=== PATIENT | male | born 1950 | race Caucasian/White ===

== ENCOUNTER 2022-11-10 11:33 | Outpatient (CLI) | payer MEDICARE, SELFPAY ==
[2022-11-10 13:51] LABS: Basophils Absolute Auto 0.03 K/uL (0.00-0.30); Basophils Percent Auto 0.6 % (0.0-3.0); Eosinophils Absolute Auto 0.07 K/uL (0.00-0.50); Eosinophils Percent Auto 1.4 % (0.0-7.0); Hematocrit 37.1 % (37.0-53.0); Hemoglobin* 12.1 gm/dL (13.5-17.5); Immature Granulocytes Abs Auto 0.03 K/uL (0.00-0.30); Immature Granulocytes Pct Auto 0.6 %; Lymphocytes Absolute Auto 2.05 K/uL (0.90-2.90); Lymphocytes Percent Auto 39.8 % (20-44); Mean Corpuscular HGB Conc 33 gm/dL (32-36); Mean Corpuscular Hemoglobin 32 pg (26-34); Mean Corpuscular Volume 98 fL (80-100); Monocytes Percent Auto 10.7 % (0.0-11.0); Neutrophils Absolute Auto 2.42 K/uL (1.7-7.0); Neutrophils Percent Auto 46.9 % (42.0-72.0); Platelet Count* 181 K/uL (140-440); Red Blood Count 3.77 m/uL (4.30-5.90); White Blood Count* 5.15 K/uL (4.50-11.00)
[2022-11-10 13:55] LABS: Slide Review Reflex No
[2022-11-10 14:03] LABS: Chloride* 107 mmol/L (96-114)
[2022-11-10 14:04] LABS: Potassium* 5.3 mmol/L (3.6-5.1); Sodium* 140 mmol/L (135-149)
[2022-11-10 14:06] LABS: Creatinine* 1.2 mg/dL (0.5-1.5); Estimated Glomerular Filt Rate 65 ml/min
[2022-11-10 14:07] LABS: Blood Urea Nitrogen* 41 mg/dL (7-30); Calcium* 9.8 mg/dL (8.4-10.6); Carbon Dioxide* 27 mmol/L (20-32); Glucose* 101 mg/dL (60-115)
[2022-11-10 14:08] LABS: HDL Cholesterol* 61 mg/dL (>=40)
[2022-11-10 15:24] LABS: Cholesterol* 243 mg/dL (90-199)
[2022-11-10 15:25] LABS: LDL Cholesterol Calculated 141 mg/dL (<100)
[2022-11-10 15:27] LABS: Triglycerides* 207 mg/dL (40-149)
[2022-11-11 14:45] LABS: Testosterone, Adult Male 148 ng/dL (300-720)
[2022-11-15 10:14] LABS: PSA Screen* 5.35 ng/mL (0.10-4.00)
== END 2022-11-10 11:34 | disposition home or self-care (01) ==
PROVIDERS: PCP Family Medicine; Visit Provider Family Medicine
DX: I10 Essential (primary) hypertension (principal); R53.1 Weakness; Z12.5 Encounter for screening for malignant neoplasm of prostate; Z13.6 Encounter for screening for cardiovascular disorders
CPT/HCPCS: 80048; 80061; 84153; 84403; 85025

== ENCOUNTER 2023-05-18 11:37 | Outpatient (CLI) | payer MEDICARE, SELFPAY | END 2023-05-18 11:38 | disposition home or self-care (01) | PROVIDERS: PCP Family Medicine; Visit Provider Family Medicine | DX: I10 Essential (primary) hypertension (principal); R97.20 Elevated prostate specific antigen [PSA]; E78.5 Hyperlipidemia, unspecified; R79.89 Other specified abnormal findings of blood chemistry | CPT/HCPCS: 80048; 84153 ==

== ENCOUNTER 2023-10-18 11:53 | Outpatient (CLI) | payer MEDICARE, SELFPAY | END 2023-10-18 11:54 | disposition home or self-care (01) | PROVIDERS: PCP Family Medicine; Visit Provider Family Medicine | DX: I10 Essential (primary) hypertension (principal); E78.2 Mixed hyperlipidemia; R97.20 Elevated prostate specific antigen [PSA]; R79.89 Other specified abnormal findings of blood chemistry | CPT/HCPCS: 80048; 80061; 84153; 84460 ==

== ENCOUNTER 2024-10-18 11:18 | Outpatient (CLI) | payer MEDICARE, SELFPAY | END 2024-10-18 11:19 | disposition home or self-care (01) | PROVIDERS: PCP Family Medicine; Visit Provider Family Medicine | DX: E78.2 Mixed hyperlipidemia (principal); I10 Essential (primary) hypertension; R97.20 Elevated prostate specific antigen [PSA]; Z12.5 Encounter for screening for malignant neoplasm of prostate | CPT/HCPCS: 80048; 80061; 84153; 84460 ==

== ENCOUNTER 2025-02-04 10:37 | Emergency (ER) | payer MEDICARE, SELFPAY ==
--- OUTSIDE RECORDS SUMMARY | 2025-02-04 10:39 | XMS_ITS | Clinical Summary ---
Author Organization [facility] Address [address] [place] [address] Care Team Providers Care Science Writer Name Role Phone Unavailable Primary Care Provider Unavailabl e Source Comments Patient records contain information from all sites at [facility]. For routine questions regarding patient records, call [phone] during business hours, M-F 8:00 AM - 5:00 PM Central Time. Record requests for emergency care only can be directed to [phone] at any time.[facility] Allergies No known active allergies Medications buprenorphine-na loxone (SUBOXONE) 8-2 mg per SL tablet Place 1 tablet under the tongue daily. 10/18/2011 Active citalopram (CeleXA) 20 mg tablet Take 1 tablet by mouth daily. 11/01/2018 Active lisinopril-hydro CHLOROthiazide (PRINZIDE,ZESTOR ETIC) 10-12.5 mg per tablet Take 1 tablet by mouth daily. 11/01/2018 Active atorvastatin (LIPITOR) 40 mg tablet Take 1 tablet by mouth daily. 10/05/[address] tablet Take 81 mg by mouth daily. Active LORazepam (ATIVAN) 2 mg tablet Take 1 tablet (2 mg total) by mouth once for 1 dose. Prior to MRI 1 tablet 12/13/2023 Active Active Problems Problem Noted Date Diagnosed Date Major Depressive Disorder Single Episode Unspeci fied 10/25/2011 Posttraumatic Stress Disorder Brief 02/09/2011 Opioid Moderate Or Severe Us e Disorder (Dependence) Uncomplicated 01/01/2011 Panic Disorder With Agoraphobia 09/07/2007 Persistent Depressive Disorder 09/07/2007 Immunizations Immunization Administration Dates Next Due H1N1 All Forms 11/28/2009 H1N1 Inj 11/28/2009 Influenza TIV (IM) 11/28/2009 Tdap 11/28/2009 influenza trivalent vaccine (6 months and older) (PF) 11/28/2009 Social History Tobacco Use Types Packs/Day Years Used Date Smoking Tobacco: Former Cigarettes Q uit: 11/07/2003 Passive Smoke Exposure: Never Smokeless Tobacco: Never [facility] Utilities Answer Date Recorded In the past 12 months has th e electric, gas, oil, or water company threatened to shut off services in your home? Patient declined 12/12/2023 Exercise Vital Sign Answer Date Recorde d On average, how many days pe r week do you engage in moderate to strenuous exercise (like a brisk walk)? 7 days 12/12/2023 On average, how many minutes do you engage in exercise at this level? 90 min 12/12/2023 Hunger Vital Sign Answer Date Recorded Within the past 12 months, y ou worried that your food would run out before you got the money to buy more. Patient declined Within the past 12 months, t he food you bought just didn't last and you didn't have money to get more. Patient declined 03/2024 PRAPARE - Transportation Answer Date Re corded In the past 12 months, has l ack of transportation kept you from medical appointments or from getting medications? No 03/2024 In the past 12 months, has l ack of transportation kept you from meetings, work, or from getting things needed for daily living? No 12/12/2023 Nutrition Answer Date Recorded Nutrition: EVOO Fat Source Unknown 12/12 On average, how many serving s of fruits and vegetables do you eat per day (serving size is equal to 1 cup or approximately the size of a tennis ball)? 0-2 12/12/2023 Dental Answer Date Recorded Dental: Regular Dentist Yes 12/12/19 Employment Answer Date Recorded Employment status Retired 12/12/2023 Housing Stability Answer Date Recorded What is your living situation today? Patient dec lined 12/12/2023 Sex and Gender Information Value Date Recorded Sex Assigned at Male 12/12/2023 1:57 PM LITERARY AGENT Legal Sex Male 1:33 PM LITERARY AGENT Gender Identity Male 12/12/2023 1:57 PM LITERARY AGENT Sexual Orientation Choose not to disclose 2023 1:57 PM LITERARY AGENT Plan of Treatment Health Maintenance Due Date Last Done Comments Abdominal Aortic Aneurysm (AAA) Screen 1952 CT Colonography 1952 Cologuard 1952 Colonoscopy 1952 Colorectal Cancer Screening 1952 Creatinine Level (Kidney Function Test) 1952 Depression Monitoring (PHQ-9) 1952 FIT 1952 Fasting Glucose for Diabetes Screening 1952 Hepatitis C Screening 1952 Potassium Level 1952 Sodium Level 1952 Pneumococcal vaccine (50+ years) (1 of 1 - PCV) 2002 Zoster Vaccines (1 of 2) 2002 DTaP,Tdap,and Td Vaccines (2 - Td or Tdap) 11/28/2019 11/28/2009 COVID-19 Vaccine (4 - 2023-2 5 season) 2024 10/28/2021, 01/31/2021, 01/10/2021 Influenza Vaccine (#1) 2024 0, 11/28/2009 Depression Monitoring (PHQ-9 for quality tracking) 11/07/2024 Fall Risk Screen (Annual) 11/07/2024 IPV Vaccines Aged Out No longer eligi ble based on patient's age to complete this topic Insurance MEDICARE
--- OUTSIDE RECORDS SUMMARY | 2025-02-04 10:39 | XMS_ITS | Clinical Summary ---
Author Organization [facility] Address [address] [place] [id number] Care Team Providers Care Occupational Therapist Per Diem Name Role Phone Dioni Rubin MD Primary Care Provider Unavail able Allergies No known active allergies Medications BUPRENORPHINE-NAL OXONE, 8 MG-2 MG, sublingual tablet 1 Active SUBOXONE film sublingual 0 8 Active buPROPion (WELLBUTRIN SR) 150 mg Sustained-Release tabletIndications :Depression, recurrent Take 1 tablet by mouth 2 times daily. Start with one tab daily in am for 2 weeks then increase to twice daily 60 tablet 6 8 Active lisinopril-hydroc hlorothiazide (10-12.5 mg) tablet (PRINZIDE; ZESTORETIC)Indica tions:Essential hypertension Take 1 tablet by mouth once daily. 90 tablet 1 8 Active citalopram (CELEXA) 20 mg tabletIndications :Agoraphobia with panic disorder,Major depressive disorder, recurrent, moderate (HC) Take 1 tablet by mouth once daily. 90 tablet 3 8 Active Active Problems Problem Noted Date Diagnosed Date MDD (major depressive disorder) 10/25/2011 PTSD (post-traumatic stress disorder) 02/09/2011 Opioid type dependence; in t he Suboxone Program with Dr. Villalpando 01/01/2011 Dysthymic disorder 09/07/2007 Agoraphobia with panic disorder 09/07/2007 Resolved Problems Problem Noted Date Diagnosed Date Resolved Date Opioid type dependence, unspecified 01/20/2010 01/01/2011 Opioid type dependence, continuous 11/26/2009 01/01/2011 Major depressive disorder, r ecurrent episode, moderate 12/19/2008 10/25/2011 Major depressive disorder, r ecurrent episode, severe, without mention of psychotic behavior 09/07/2007 10/25/2011 Immunizations Immunization Administration Dates Next Due Influenza A (H1N1), Inactivated (Age >=3 Years) 11/28/2009 Influenza, IIV3 (Age >=3 years) 11/28/2009 Tdap 11/28/2009 Family History Medical History Relation Name Comments COPD Father Good Health Mother Relation Name Status Comments Father Mother Alive Social History Tobacco Use Types Packs/Day Years Used Date Smoking Tobacco: Former Cigarettes Smokeless Tobacco: Never Tobacco Cessation:Counseling Given: Yes Comments:uses E-cig Alcohol Use Standard Drinks/Week Comments No 0 (1 standard drink = 0.6 oz pur e alcohol) None since mid PHQ-2 Answer Date Recorded PHQ-2 Score 2 01/06/2019 Sex and Gender Information Value Date Recorded Sex Assigned at Not on file Legal Sex Male 5:23 AM CLOTH WIRE WEAVER Gender Identity Not on file Sexual Orientation Not on file 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 Not on file Not on file Obstetrics History Last Filed Vital Signs Vital Sign Reading Time Taken Comments Blood Pressure 138/64 11/01/2018 11:09 AM CLOTH WIRE WEAVER Pulse 96 11/01/2018 11:09 AM CLOTH WIRE WEAVER Temperature 36.1 C (97 F) 11/01/2018 11:09 AM CLOTH WIRE WEAVER Respiratory Rate 16 11/01/2018 11:09 AM CLOTH WIRE WEAVER Oxygen Saturation 98% 11/01/2018 11:09 AM CLOTH WIRE WEAVER Inhaled Oxygen Concentration - - Weight 88 kg (194 lb) 11/01/2018 11:09 AM CLOTH WIRE WEAVER Height 177 cm (5' 9.69) 11/01/2018 11:09 AM CLOTH WIRE WEAVER Body Mass Index 28.09 11/01/2018 11:09 AM CLOTH WIRE WEAVER Plan of Treatment Health Maintenance Due Date Last Done Comments Hepatitis C screening for ag e 18-79 1970 Colonoscopy through age 75 1997 Pneumococcal series for age 50+ (1 of 1 - PCV) 2002 Zoster (shingles) series for age 50+ (1 of 2) 2002 Depression screening for age 12+ 08/29/2019 08/29/2018, 08/07/2018, 01/16/2018, Additional history exists BMI (ht and wt on same day) for age 18+ 11/01/2019 11/01/2018, 08/29/2018, 08/07/2018, Additional history exists Tetanus booster 11/28/2019 11/28/2009 Lipids for age 45-75 11/28/2022 11/28/2017 COVID-19 vaccine series ( - 2023- season) 2024 Influenza Vaccine (#1) 2024 11/28/2009 RSV vaccine for adults or (1 - 1-dose 75+ series) 2027 Tdap Completed 11/28/2009 Procedures Procedure Name Priority Date/Time Associated Diagnosis Comments LIPID PANEL Routine 11/28/2017 1:05 PM CLOTH WIRE WEAVER Lipid screening from Last 3 Months or Most Recently Relevant to Health Maintenance Results * (ABNORMAL) LIPID PANEL (11/28/2017 1:05 PM CLOTH WIRE WEAVER) CHOLESTEROL,TOTAL 243(H) 100 - 199 mg/dL 11/28/2017 1:47 PM CLOTH WIRE WEAVER [facility] TRIGLYCERIDES 382(H) <150 mg/dL 11/28/2017 1:47 PM [facility] HDL CHOLESTEROL 54 >40 mg/dL 8 1:47 PM CLOTH WIRE WEAVER [facility] NON-HDL CHOLESTEROL 189(H) <145 mg/dl 11/28/2017 1:47 PM [facility] CHOL/HDL RATIO 4.50(H) <4.50 11/28/2017 1:47 PM [facility] LDL CHOLESTEROL 113 <=130 mg/dL 11/28/2017 1:47 PM [facility] PROVIDER ORDERED STATUS RANDOM 11/28/2017 1:47 PM [facility] Blood BLOOD SPECIMEN / Unknown Venipuncture / Unknown 11/28/2017 1:05 PM CLOTH WIRE WEAVER 11/28/2017 1:08 PM CLOTH WIRE WEAVER us Dioni A Scottie MD CHEMISTRY Final Result [address] [id number] from Last 3 Months or Most Recently Relevant to Health Maintenance Insurance MEDICARE [place] ONLY Care Teams Occupational Therapist Per Diem Relationship Specialty Start Date End Date Dioni Rubin MD PCP - General 09/01/07
[2025-02-04 10:40] VITALS: BP 157/73; PULSE 100; RESP 18; TEMP 37; O2SAT 97; BMI 27.3
--- NOTE | 2025-02-04 10:47 | CRLHL7_ITS ---
For Patients: As a result of the Century Cures Act, medical imaging exams and procedure reports are released immediately into your electronic medical record. You may view this report before your referring provider. If you have questions, please contact your health care provider. INDICATION: Leg pain and swelling. TECHNIQUE: Ultrasound venous duplex lower left extremity. Compression venous exam was performed using toro-scale, color Doppler, and spectral Doppler analysis. COMPARISON: None. FINDINGS: Deep veins: Sonographic imaging demonstrates the left common femoral, deep femoral, superficial femoral, popliteal, posterior tibial and the contralateral right common femoral veins to be fully compressible with normal color Doppler blood flow. Superficial veins: Proximal greater saphenous vein is fully compressible. IMPRESSION: No deep venous thrombosis. Dictated by Radha Morales MD @ 02/04/2025 11:38:56 AM (Electronically Signed)
--- NOTE | 2025-02-04 12:14 | ED_ITS ---
HPI - General Adult General Date Seen: 02/04/25 Chief complaint: Extremity Pain/Injury, Lower Stated complaint: possible blood clot, sent by clinic Time Seen by Provider: 02/04/25 12:04 Source: patient Mode of arrival: ambulatory Limitations: no limitations History of Present Illness HPI narrative: Patient is a 74-year-old male who presenting to the emergency department for lower extremity swelling. He he knows notable left lower extremity swelling is starting or no 3 days ago that has gradually been improving. He states he has been keeping his legs elevated. He saw as addiction medicine specialist today and was recommended to come to the emergency department to rule out a blood clot. Has not noticed any redness to the area or pain. States he used to walk his dog 3 miles every day but his dog 3 months ago he has been much more sedentary since then. Has never been diagnosed with any heart disease. Denies fevers, chills, chest pain, shortness of breath, weakness, lightheadedness, dizziness. No other concerns noted. No history of blood clots. Related Data Home Medications ?Medication ?Instructions ?Recorded ?Confirmed multivitamin with iron 1 tab PO QDAY 05/11/22 02/04/25 aspirin 81 mg tablet,delayed 81 mg PO QDAY 11/19/22 02/04/25 release (Adult Aspirin Regimen) Previous Rx's ?Medication ?Instructions ?Recorded atorvastatin 40 mg tablet 40 mg PO QDAY #90 tabs 10/19/24 citalopram 20 mg tablet 20 mg PO QDAY #90 tabs 10/19/24 lisinopril 20 1 tab PO QDAY #90 tabs 10/19/24 mg-hydrochlorothiazide 25 mg tablet buprenorphine 8 mg-naloxone 2 mg 1 film sublingual QDAY #28 ea 02/04/25 sublingual film Allergies Allergy/AdvReac Type Severity Reaction Status Date / Time ciprofloxacin AdvReac Mild Rash/GI Verified 02/04/25 10:47 intolerance Review of Systems Status of ROS: Reports: 10 or more systems reviewed and unremarkable except as noted in History and below [facility] Medical History Mixed hyperlipidemia ?E78.2 - Mixed hyperlipidemia (ICD-10) Primary hypertension ?I10 - Essential (primary) hypertension (ICD-10) Elevated PSA ?R97.20 - Elevated prostate specific antigen [PSA] (ICD-10) Major depression, recurrent ?F33.9 - Major depressive disorder, recurrent, unspecified (ICD-10) Low testosterone in male ?R79.89 - Other specified abnormal findings of blood chemistry (ICD-10) Posttraumatic stress disorder ?F43.10 - Post-traumatic stress disorder, unspecified (ICD-10) Opioid dependence ?F11.20 - Opioid dependence, uncomplicated (ICD-10) Generalized anxiety disorder ?F41.1 - Generalized anxiety disorder (ICD-10) Family History Maternal Grandfather Heart disease Social History What is your current living situation?: I presently have a place to live Problems where you live: no known problems In the past 12 months, utilities in danger of being shut off: no In past 12 months, lack of transportation kept you from medical appts, meetings, work, or getting things needed for daily living: no In the past 12 mos, have been you worried that your food would run out before you had money to buy more?: never true In the past 12 mos, the food you bought just didn't last and you didn't have money to buy more?: never true Smoking Status: Former smoker How often does anyone, including family, friends and others, physically hurt you : never How often does anyone, including family, friends and others, insult or talk down to you: never How often does anyone, including family, friends and others, threaten you with harm: never How often does anyone, including family, friends and others, scream or curse at you: never Exam Narrative: Exam Narrative: Const: Well-nourished, Well-developed, in mild distress Eyes: PERRL, no conjunctival injection, and symmetrical lids HENT: Atraumatic external nose and ears. Moist mucous membranes. Neck: Symmetric, trachea midline, No thyromegaly. CVS: RRR, No murmurs or gallops. Peripheral pulses 2+ and equal in all extremities Extremities: +2 lower extremity pitting edema bilaterally prison up the franco. No erythema noted RESP: Unlabored respiratory effort. Clear to auscultation bilaterally. GI: Nontender/Nondistended, No rebound or guarding. MSK:Extremities w/o deformity, Normal Active ROM Skin: Warm, Dry. No rashes or lesions. Neuro: Normal Muscle tone, No focal neurological deficits. Psych: Awake, Alert, & Oriented x3. Appropriate mood and affect. Const: Vital Signs, click to edit/add: Vital Signs - 24 hr 02/04/25 10:40 Temperature 98.6 F Pulse Rate [Pulse Oximeter] 100 Respiratory Rate 18 Blood Pressure [Le ft Upper Arm] 157/73 H Pulse Oximetry 97 Oxygen Delivery Me thod Room Air Course Vital Signs Vital signs: Initial Vital Signs Temperature 98.6 F 02/04/25 10:40 Temperature Source Temporal Artery Scan 02/04/25 10:40 Pulse Rate 100 02/04/25 10:40 Respiratory Rate 18 02/04/25 10:40 Blood Pressure 157/73 H 02/04/25 10:40 Blood Pressure Mean 101 02/04/25 10:40 Pulse Oximetry 97 02/04/25 10:40 Oxygen Delivery Method Room Air 02/04/25 10:40 Vital Signs Temperature 98.6 F 02/04/25 10:40 Pulse Rate 100 02/04/25 10:40 Respiratory Rate 18 02/04/25 10:40 Blood Pressure 157/73 H 02/04/25 10:40 Pulse Oximetry 97 02/04/25 10:40 Oxygen Delivery Method Room Air 02/04/25 10:40 Temperature 98.6 F 02/04/25 10:40 Pulse Rate 100 02/04/25 10:40 Respiratory Rate 18 02/04/25 10:40 Blood Pressure 157/73 H 02/04/25 10:40 Pulse Oximetry 97 02/04/25 10:40 Oxygen Delivery Method Room Air 02/04/25 10:40 Medical Decision Making [facility] Narrative Medical decision making narrative: Patient is a 74-year-old male presenting to emergency department for concern of a blood clot. Ultrasound was ordered in triage by nursing staff and was completed by the time I saw the patient. No signs of a blood clot. I do not see any clear signs of cellulitis at this time. His vital signs are stable and he is doing well overall. I do believe that the increase and lower extremity edema is from his more recent sedentary lifestyle. Recommended ambulating more and keeping the legs elevated. Also recommended close follow-up with primary care provider. He is agreeable to this plan. Will be discharged. Imaging Data Venous US: Radiologist's impression: No deep venous thrombosis. Dictated by Radha Morales MD @ 02/04/2025 11:38:56 AM Discharge Plan Discharge Clinical Impression: Bilateral edema of lower extremity Patient Disposition: Home, Self-Care Condition: Stable Instructions: Leg Edema (ED) Additional Instructions: Try to walk more frequently and keep your legs elevated above your heart when possible. Recommend close follow-up with her primary care provider. I will call them and explained about having this increasing edema and see if they want you to be seen earlier than your appointment 1 month from now. Return for any other new or worsening symptoms. Prescriptions: No Action multivitamin with iron Tablet 1 tab PO QDAY lisinopril-hydrochlorothiazide 20-25 mg tablet 1 tab PO QDAY Qty: 90 3RF citalopram 20 mg tablet 20 mg PO QDAY Qty: 90 3RF atorvastatin 40 mg tablet 40 mg PO QDAY Qty: 90 3RF buprenorphine-naloxone 8-2 mg film 1 film sublingual QDAY Qty: 28 2RF Rx Instructions: OK to fill early i case he goes on vacation - the patient prefers generic if possible aspirin [Adult Aspirin Regimen] 81 mg tablet,delayed release (DR/EC) 81 mg PO QDAY Follow Up/Referrals: Negrito Vale MD [Primary Care Provider] - Stand Alone Forms: Loopt Info Instructions
--- OUTSIDE RECORDS SUMMARY | 2025-02-04 12:24 | XMS_ITS | Clinical Summary ---
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 on file Not on file Obstetrics History Last Filed Vital Signs Vital Sign Reading Time Taken Comments Blood Pressure 138/64 11/01/2018 11:09 AM INSIDE SALES MANAGER Pulse 96 11/01/2018 11:09 AM INSIDE SALES MANAGER Temperature 36.1 C (97 F) 11/01/2018 11:09 AM INSIDE SALES MANAGER Respiratory Rate 16 11/01/2018 11:09 AM INSIDE SALES MANAGER Oxygen Saturation 98% 11/01/2018 11:09 AM INSIDE SALES MANAGER Inhaled Oxygen Concentration - - Weight 88 kg (194 lb) 11/01/2018 11:09 AM INSIDE SALES MANAGER Height 177 cm (5' 9.69) 11/01/2018 11:09 AM INSIDE SALES MANAGER Body Mass Index 28.09 11/01/2018 11:09 AM INSIDE SALES MANAGER Plan of Treatment Health Maintenance Due Date [...] Comments LIPID PANEL Routine 11/28/2017 1:05 PM INSIDE SALES MANAGER Lipid screening from Last 3 Months or Most Recently Relevant to Health Maintenance Results * (ABNORMAL) LIPID PANEL (11/28/2017 1:05 PM INSIDE SALES MANAGER) CHOLESTEROL,TOTAL 243(H) 100 - 199 mg/dL 11/28/2017 1:47 PM INSIDE SALES MANAGER [facility] TRIGLYCERIDES 382(H) <150 mg/dL 11/28/2017 1:47 PM [facility] HDL CHOLESTEROL 54 >40 mg/dL 8 1:47 PM INSIDE SALES MANAGER [facility] NON-HDL CHOLESTEROL 189(H) <145 mg/dl 11/28/2017 1:47 PM [facility] CHOL/HDL RATIO 4.50(H) <4.50 11/28/2017 1:47 PM [facility] LDL CHOLESTEROL 113 <=130 mg/dL 11/28/2017 1:47 PM [facility] PROVIDER ORDERED STATUS RANDOM 11/28/2017 1:47 PM [facility] Blood BLOOD SPECIMEN / Unknown Venipuncture / Unknown 11/28/2017 1:05 PM INSIDE SALES MANAGER 11/28/2017 1:08 PM INSIDE SALES MANAGER us Dioni A Scottie MD CHEMISTRY Final Result [address] [id number] from Last 3 Months or Most Recently Relevant to Health Maintenance Insurance MEDICARE [place] ONLY Care Teams Compliance Review Officer Relationship Specialty Start Date End Date Dioni Rubin MD PCP - General 09/01/07
--- OUTSIDE RECORDS SUMMARY | 2025-02-04 12:24 | XMS_ITS | Clinical Summary ---
Author Organization [facility] Address [address] [place] [address] Care Team Providers Care Senior Business Analyst Name Role Phone Unavailable Primary Care Provider Unavailabl e Source Comments Patient records contain information from all sites at [facility]. For routine questions regarding patient records, call [phone] during business hours, M-F 8:00 AM - 5:00 PM Central Time. Record requests for emergency care only can be directed to [phone] at any time.[facility] Allergies No known active allergies Medications buprenorphine-na [...] Passive Smoke Exposure: Never Smokeless Tobacco: Never [facility] Utilities Answer Date Recorded In the past [...] Sex Assigned at Male 12/12/2023 1:57 PM COLLISION REPAIRER Legal Sex Male 1:33 PM COLLISION REPAIRER Gender Identity Male 12/12/2023 1:57 PM COLLISION REPAIRER Sexual Orientation Choose not to disclose 2023 1:57 PM COLLISION REPAIRER Plan of Treatment Health Maintenance Due Date [...]
== END 2025-02-04 12:36 | disposition home or self-care (01) ==
PROVIDERS: Emergency Provider Student in an Organized Health Care Education/Training Program; PCP Family Medicine
DX: R60.0 Localized edema (principal)
CPT/HCPCS: 93971; 99283

== ENCOUNTER 2025-10-23 12:18 | Outpatient (CLI) | payer MEDICARE, SELFPAY | END 2025-10-23 12:19 | disposition home or self-care (01) | PROVIDERS: PCP Family Medicine; Visit Provider Family Medicine | DX: R97.20 Elevated prostate specific antigen [PSA] (principal); I10 Essential (primary) hypertension; E78.2 Mixed hyperlipidemia; D64.9 Anemia, unspecified | CPT/HCPCS: 80048; 80061; 82728; 84153; 84443; 84460 ==